=== PATIENT | female | born 1975 | race Caucasian/White ===

== ENCOUNTER → 2016-10-18 | Outpatient (CLI) | payer BC ==
[~2016-10-18] MED LIST: ADVIL100 MG PO; AUGMENTIN875 MG PO; Motrin PO; NOHOMEMEDS; NORMODYNE,TRAN200 MG PO; Normodyne,Trandate PO; Percocet 5/325,Endoc PO
== END | disposition home or self-care (01) ==
LOC: NUC 11:17
DX: R10.11 Right upper quadrant pain (principal); R10.13 Epigastric pain; R11.0 Nausea
CPT/HCPCS: 78227; A9537; J2805

== ENCOUNTER 2017-06-23 22:18 | Emergency (ER) | payer OTHER ==
[~2017-06-23] VITALS: Ht 165.1 cm; Wt 99.8 kg
[2017-06-23 22:47] LABS: BASOPHIL (%) 0.8 % (0-1); BASOPHIL COUNT 0.1 K/uL (0-0.1); EOSINOPHIL COUNT 0.4 K/uL (0-0.3); HEMATOCRIT 34.6 % (36.0-46.0); HEMOGLOBIN 11.5 G/DL (11.9-15.5); IMMATURE GRANULOCYTE (%) 0.3 % (0.0-0.7); LYMPHOCYTE (%) 45.8 % (15-42); LYMPHOCYTE COUNT 3.4 K/uL (1.0-2.8); MCHC 33.2 G/DL (30.0-36.0); MCV 81.2 FL (83-99); MONOCYTE (%) 7.3 % (3-12); MONOCYTE COUNT 0.5 K/uL (0-0.8); NEUTROPHIL (%) 39.8 % (45-76); NEUTROPHIL COUNT 2.9 K/uL (1.8-6.4); PLATELET COUNT 269 K/uL (156-360); RBC DIS.WIDTH-CV 13.7 % (11.8-14.6); RBC DIS.WIDTH-SD 40.3 % (39-53); RED BLOOD COUNT 4.26 M/uL (3.80-5.20); WHITE BLOOD COUNT 7.4 K/uL (4.1-10.2)
[2017-06-23 22:57] LABS: CHLORIDE 104 mEq/L (99-109); POTASSIUM 3.9 mEq/L (3.7-5.4); SODIUM 136 mEq/L (136-147)
[2017-06-23 22:59] LABS: GLUCOSE 86 mg/dL (70-99)
[2017-06-23 23:07] LABS: TROP-I INTERPRETATION NEGATIVE; TROPONIN-I < 0.01 ng/mL (0.0-0.30)
[2017-06-23 23:10] LABS: ALBUMIN 3.9 g/dL (3.2-4.8)
[2017-06-23 23:12] LABS: D-DIMER ELISA < 150.00 ng/mLDDU (<230)
[2017-06-23 23:13] LABS: TOTAL PROTEIN 6.6 g/dL (6.4-8.3)
[2017-06-23 23:15] LABS: TOTAL BILIRUBIN 0.2 mg/dL (0.0-1.0)
[2017-06-23 23:16] LABS: ALKALINE PHOSPHATASE 42 IU/L (3-129); CREATININE 0.8 mg/dL (0.6-1.3); GFR ESTIMATE (CALCULATED) > 59 mL/min/
[2017-06-23 23:17] LABS: UREA NITROGEN (BUN) 11 mg/dL (9-23)
[2017-06-23 23:18] LABS: AST (GOT) 15 IU/L (2-34); DIRECT BILIRUBIN 0.1 mg/dL (0.0-0.3)
[2017-06-23 23:19] LABS: ALT (GPT) 12 IU/L (3-49)
[2017-06-23 23:20] LABS: LIPASE 9 U/L (1.0-51.0)
[2017-06-24 01:35] LABS: TROP-I INTERPRETATION NEGATIVE; TROPONIN-I < 0.01 ng/mL (0.0-0.30)
[2017-06-24 01:52] VITALS: BP 133/100
== END 2017-06-24 01:57 | disposition home or self-care (01) ==
LOC: EME 22:18
PROVIDERS: Emergency Medicine
DX: R07.89 Other chest pain (principal); I10 Essential (primary) hypertension
CPT/HCPCS: 71046; 80048; 80076; 83690; 84484; 85025; 85379; 93005; 99281; 99284